=== PATIENT | male | born 1975 | race American Indian/Alaskan Native ===

== ENCOUNTER 2017-02-19 09:55 | Emergency (ER) | payer BC ==
[2017-02-19 10:47] VITALS: BP 134/85
[2017-02-19 11:27] LABS: Basophils % (Auto) 0.6 % (0.0-1.8); Eosinophils % (Auto) 1.7 % (0.0-4.3); Hematocrit 45.5 % (35.5-45.6); Hemoglobin 15.3 gm/dl (11.8-15.2); Mean Corpuscular HGB Conc 34 % (32-34); Mean Corpuscular Hemoglobin 29 pg (28-32); Mean Corpuscular Volume 86 fl (84-94); Platelet Count 248 K/mm3 (140-440); Red Blood Count 5.33 M/mm3 (3.65-5.03); Red Cell Distribution Width 14.1 % (13.2-15.2)
--- NOTE | 2017-02-19 11:29 | Emergency Department Report ---
- General Chief complaint: Skin/Abscess/Foreign Body Stated complaint: CYST LEFT ARM PIT Time Seen by Provider: 02/19/17 11:28 Source: patient Mode of arrival: Ambulatory Limitations: No Limitations - History of Present Illness Initial comments: 41-year-old male past medical history none presents with complaint of a cyst developing under his left axilla for 4 days. Patient attempted to squeeze out pus from mass but was unable to do so at home. Patient denies fevers or chills. Is awake alert and oriented 3. Visible golf ball sized abscess underneath the left axilla. complaint: abscess/boil (left axilla) Onset/Timin -: days(s) Location: LUE (left axilla) Severity: moderate Severity scale (0 -10): 5 Quality: aching Improves with: none Worsens with: none Context: none - Related Data Previous Rx's Medication Instructions Recorded Last Taken Type Ibuprofen [Motrin] 800 mg PO Q8HR PRN #20 tablet 02/19/17 Unknown Rx Sulfamethoxazole/Trimethoprim 1 each PO BID #14 tablet 02/19/17 Unknown Rx [Bactrim DS TAB] Allergies Allergy/AdvReac Type Severity Reaction Status Date / Time No Known Allergies Allergy Unverified 02/19/17 10:41 Abscess Boil HPI - HPI Chief Complaint: Skin/Abscess/Foreign Body Stated Complaint: CYST LEFT ARM PIT Time Seen by Provider: 02/19/17 11:28 Home Medications: Previous Rx's Medication Instructions Recorded Last Taken Type Ibuprofen [Motrin] 800 mg PO Q8HR PRN #20 tablet 02/19/17 Unknown Rx Sulfamethoxazole/Trimethoprim 1 each PO BID #14 tablet 02/19/17 Unknown Rx [Bactrim DS TAB] Allergies/Adverse Reactions: Allergies Allergy/AdvReac Type Severity Reaction Status Date / Time No Known Allergies Allergy Unverified 02/19/17 10:41 ED Review of Systems ROS: Stated complaint: CYST LEFT ARM PIT Other details as noted in HPI Constitutional: denies: chills, fever Eyes: denies: eye pain, eye discharge, vision change ENT: denies: ear pain, throat pain Respiratory: denies: cough, shortness of breath, wheezing Cardiovascular: denies: chest pain, palpitations Endocrine: no symptoms reported Gastrointestinal: denies: abdominal pain, nausea, diarrhea Genitourinary: denies: urgency, dysuria Musculoskeletal: denies: back pain, joint swelling, arthralgia Skin: denies: rash, lesions Neurological: as per HPI (golf ball sized abscess left axilla). denies: headache, weakness, paresthesias Psychiatric: denies: anxiety, depression Hematological/Lymphatic: denies: easy bleeding, easy bruising ED Past Medical Hx - Past Medical History Previous Medical History?: Yes Additional medical history: Boils - Surgical History Past Surgical History?: No - Social History Smoking Status: Current Every Day Smoker Substance Use Type: Alcohol, Marijuana - Medications Home Medications: Home Medications Medication Instructions Recorded Confirmed Last Taken Type Ibuprofen [Motrin] 800 mg PO Q8HR PRN #20 tablet 02/19/17 Unknown Rx Sulfamethoxazole/Trimethoprim 1 each PO BID #14 tablet 02/19/17 Unknown Rx [Bactrim DS TAB] ED Physical Exam - General Limitations: No Limitations General appearance: alert, in no apparent distress - Head Head exam: Present: atraumatic, normocephalic - Eye Eye exam: Present: normal appearance, PERRL, EOMI - ENT ENT exam: Present: mucous membranes moist - Neck Neck exam: Present: normal inspection - Respiratory Respiratory exam: Present: normal lung sounds bilaterally. Absent: respiratory distress - Cardiovascular Cardiovascular Exam: Present: regular rate, normal rhythm. Absent: systolic murmur, diastolic murmur, rubs, gallop - GI/Abdominal GI/Abdominal exam: Present: soft, normal bowel sounds - Rectal Rectal exam: Present: deferred - Extremities Exam Extremities exam: Present: normal inspection - Back Exam Back exam: Present: normal inspection - Neurological Exam Neurological exam: Present: alert, oriented X3, CN II-XII intact, normal gait - Psychiatric Psychiatric exam: Present: normal affect, normal mood - Skin Skin exam: Present: warm, dry, intact, normal color, other. Absent: rash - Expanded Skin Exam Expanded Type of lesion: Present: abscess (5 cm abscess w/ midl surrounding cellulitis left axilla) 1 - abscess here ED Course Vital Signs 02/19/17 10:41 Temperature 99.1 F Pulse Rate 64 Respiratory 18 Rate Blood Pressure 134/85 O2 Sat by Pulse 100 Oximetry - I & D Left Shoulder Type of Procedure: Simple Site: left axilla Blade Size: 11 I & D Procedure: betadine prep, gauze wick placed Progress: Area is infiltrated with lidocaine with epinephrine good local anesthesia achieved, small 1-2 cm stab incision made, moderate amount of drainage. Wound decompressed via physical manipulation. Approximately 6-7 mL of pus extracted. Abscess packed with iodoform gauze quarter-inch approximately 4 inches in length. Covered with gauze afterward. ED Medical Decision Making - Lab Data Result diagrams: 02/19/17 10:59 - Medical Decision Making A/P: left axiallary abscess 1-abscess incised and drained successfully, packed with iodoform gauze. Patient instructed to remove gauze within 16-24 hours. I advised patient he can also return to the ED for removal of gauze if he cannot do this at home on his own. 2-Motrin 800mg when necessary 3-course of Bactrim DS twice a day 7 days Critical care attestation.: If time is entered above; I have spent that time in minutes in the direct care of this critically ill patient, excluding procedure time. ED Disposition Clinical Impression: Abscess of left axilla, Cellulitis of axilla, left Disposition: DC-01 TO HOME OR SELFCARE Is pt being admited?: No Does the pt Need Aspirin: No Condition: Stable Instructions: Abscess Incision and Drainage (ED), Abscess (ED), Cellulitis (ED) Prescriptions: Ibuprofen [Motrin] 800 mg PO Q8HR PRN #20 tablet PRN Reason: Pain Sulfamethoxazole/Trimethoprim [Bactrim DS TAB] 1 each PO BID #14 tablet Referrals: [facility] [Outside] - 3-5 Days [facility] [Outside] - 3-5 Days Forms: Work/School Release Form(ED) Time of Disposition: 12:02
[2017-02-19] MEDS ORDERED: XYLOCAINE 2%/EPI 1:100,000 INFILTRATI ONE (11:32)
[2017-02-19] MEDS ORDERED: XYLOCAINE 2%/ EPI 1:200,000 INFILTRATI ONE (11:35)
[2017-02-19 11:40] LABS: Alanine Aminotransferase 25 units/L (7-56); Albumin/Globulin Ratio 1.3 %; Alkaline Phosphatase 69 units/L (35-129); Anion Gap 15 mmol/L; BUN/Creatinine Ratio 16; Blood Urea Nitrogen 11 mg/dL (9-20); Calcium 9.1 mg/dL (8.4-10.2); Carbon Dioxide 27 mmol/L (22-30); Chloride 103.3 mmol/L (98-107); Glucose 99 mg/dL (75-100); Sodium 141 mmol/L (137-145); Total Protein 7.2 g/dL (6.3-8.2)
[2017-02-19] MEDS ORDERED: MOTRIN PO ONE (12:03)
== END 2017-02-19 12:13 | disposition home or self-care (01) ==
LOC: ED 09:55
DX: L02.412 Cutaneous abscess of left axilla (principal); F17.210 Nicotine dependence, cigarettes, uncomplicated; F12.10 Cannabis abuse, uncomplicated
CPT/HCPCS: 36415; 80053; 85025; 99283

== ENCOUNTER 2019-05-02 09:40 | Emergency (ER) | payer BC, OTHER ==
--- NOTE | 2019-05-02 15:41 | Emergency Department Report ---
HPI - General Chief Complaint: Upper Respiratory Infection Time Seen by Provider: 05/02/19 15:21 - HPI HPI: Room 33 The patient is a 43-year-old male presenting with chief complaint of cough and sore throat and body aches. He states symptoms began 2 nights ago with a cough and sore throat. Patient states when he awakened he had body aches and chills. Patient states he had hot and cold flashes and a subjective fever. The patient states his cough has been nonproductive The patient states he believes his sister is in the home is also sick. Location: [See above] Duration: [See above] Quality: [See above] Severity: [See above] Timing: [See above] Context: [See above] Modifying factors: [See above] Associated signs and symptoms: [see above] ED Past Medical Hx - Past Medical History Previous Medical History?: Yes Additional medical history: Boils - Surgical History Past Surgical History?: No - Family History Family history: no significant - Social History Smoking Status: Current Every Day Smoker (1/2 pack per day) Substance Use Type: Alcohol, Marijuana - Medications Home Medications: Home Medications Medication Instructions Recorded Confirmed Last Taken Type Ibuprofen [Motrin] 800 mg PO Q8HR PRN #20 tablet 02/19/17 Unknown Rx Sulfamethoxazole/Trimethoprim 1 each PO BID #14 tablet 02/19/17 Unknown Rx [Bactrim DS TAB] Amoxicillin [Trimox CAP] 500 mg PO BID #14 capsule 05/02/19 Unknown Rx Benzonatate [Tessalon Perles] 100 mg PO Q8HR #30 capsule 05/02/19 Unknown Rx Cyclobenzaprine [Flexeril] 10 mg PO TID PRN #14 tablet 05/02/19 Unknown Rx Ibuprofen [Motrin 800 MG tab] 800 mg PO Q8HR PRN #20 tablet 05/02/19 Unknown Rx ED Review of Systems ROS: Stated complaint: SICK Other details as noted in HPI Constitutional: no symptoms reported Eyes: denies: eye pain ENT: congestion Respiratory: cough Cardiovascular: denies: chest pain Endocrine: no symptoms reported Gastrointestinal: denies: abdominal pain Genitourinary: denies: dysuria Musculoskeletal: myalgia Neurological: denies: headache Physical Exam - Physical Exam Vital Signs: Vital Signs 05/02/19 10:55 Temperature 99 F Pulse Rate 70 Respiratory 18 Rate Blood Pressure 118/83 O2 Sat by Pulse 99 Oximetry Physical Exam: GENERAL: The patient is well-developed well-nourished male sitting on chair not appearing to be in acute distress. [] HEENT: Normocephalic. Atraumatic. Extraocular motions are intact. Patient has moist mucous membranes. Oropharynx clear NECK: Supple. No stridor CHEST/LUNGS: Clear to auscultation. There is no respiratory distress noted. HEART/CARDIOVASCULAR: Regular. There is no tachycardia. There is no gallop rub or murmur. ABDOMEN: Abdomen is soft, nontender. Patient has normal bowel sounds. There is no abdominal distention. SKIN: There is no rash. There is no edema. There is no diaphoresis. NEURO: The patient is awake, alert, and oriented. The patient is cooperative. The patient has normal speech MUSCULOSKELETAL:There is no evidence of acute injury. ED Course Vital Signs 05/02/19 10:55 Temperature 99 F Pulse Rate 70 Respiratory 18 Rate Blood Pressure 118/83 O2 Sat by Pulse 99 Oximetry ED Medical Decision Making - Lab Data Laboratory Tests 05/02/19 Unknown Influenza A (Rapid) Negative Influenza B (Rapid) Negative - Radiology Data Radiology results: report reviewed (chest x-ray) Chest x-ray (read by radiologist)- no acute findings - Differential Diagnosis influenza, URI, bronchitis Critical care attestation.: If time is entered above; I have spent that time in minutes in the direct care of this critically ill patient, excluding procedure time. ED Disposition Clinical Impression: Sore throat, Cough Disposition: DC-01 TO HOME OR SELFCARE Is pt being admited?: No Does the pt Need Aspirin: No Condition: Stable Instructions: Strep Throat (ED) Additional Instructions: Return to the emergency department should you develop worsening symptoms, inability to tolerate food or liquids, high fever or any other concerns Prescriptions: Cyclobenzaprine [Flexeril] 10 mg PO TID PRN #14 tablet PRN Reason: Muscle Spasm Ibuprofen [Motrin 800 MG tab] 800 mg PO Q8HR PRN #20 tablet PRN Reason: Pain, Moderate (4-6) Benzonatate [Tessalon Perles] 100 mg PO Q8HR #30 capsule Amoxicillin [Trimox CAP] 500 mg PO BID #14 capsule Referrals: PRIMARY CARE, [Primary Care Provider] - 3-5 Days [facility] [Outside] - 3-5 Days Time of Disposition: 16:25
--- NOTE | 2019-05-02 16:21 | XRay Report ---
CHEST 2 VIEWS INDICATION: cough,. COMPARISON: None. FINDINGS: Support devices: None. Heart: Within normal limits. Lungs/Pleura: No acute air space or interstitial disease. No significant pleural effusion. IMPRESSION: No acute findings. Signer Name: Raj Bojorquez MD Signed: 05/02/2019 4:16 PM Workstation Name: [id number]
[2019-05-02 16:52] VITALS: BP 142/82
== END 2019-05-02 16:51 | disposition home or self-care (01) ==
LOC: ED 09:40
DX: J02.9 Acute pharyngitis, unspecified (principal); R05 Cough; F17.200 Nicotine dependence, unspecified, uncomplicated; F12.10 Cannabis abuse, uncomplicated; Z79.1 Long term (current) use of non-steroidal anti-inflammatories (NSAID); Z79.2 Long term (current) use of antibiotics; Z79.899 Other long term (current) drug therapy
CPT/HCPCS: 71046; 87400